=== PATIENT | male | born 2005 | race African-American/Black ===

== ENCOUNTER 2025-01-02 18:57 | Emergency (ER) | payer OTHER, SELFPAY ==
--- NOTE | ~2025-01-02 | CT_ITS ---
CLINICAL HISTORY: seizure, hx of shunt CT head without contrast Comparison: None Findings: Limited study in the absence of comparison imaging, given chronic appearing changes. Left posterior approach ventriculostomy terminates proximally midline. There is asymmetric prominence of the right lateral ventricle. 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 There is leftward midline shift of approximately 6 mm. Asymmetric increased density throughout the right temporal and parietal lobes with more punctate regions high density seen on axial images 40 9-53 within the right temporal lobe. The orbits are unremarkable. There is no acute fracture. IMPRESSION: Limited study given the absence of comparison imaging. 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 6 mm of leftward midline shift. Additional somewhat punctate and linear regions of high density may reflect internal calcifications however if there has been trauma, subarachnoid hemorrhage could also have this appearance. Presumably there is imaging elsewhere which could be compared to this study. This document has been electronically signed by: Mike Becerra MD on 01/02/2025 21:44:46
[2025-01-02 19:05] VITALS: BP 132/66; PULSE 78; RESP 20; TEMP 36.5; O2SAT 98; BMI 43.9
--- NOTE | 2025-01-02 19:11 | ED.GENADULT ---
HPI - General Adult General Chief complaint: Seizure Stated complaint: pt having seizures non ambulatory, headache a&o Time Seen by Provider: 01/02/25 19:11 History of Present Illness ED Provider: Louis WORTHINGTON narrative: The patient is a 19-year-old male who lives at a custodial. He has a seizure disorder. He is normally on valproic acid, clobazam, and zonisamide. Apparently his usual seizures last 2 minutes. Today he had a seizure that lasted 7 minutes and so an ambulance was called and he was brought to the hospital. Here in the emergency room the patient is concerned that he is having shunt malfunction. A staff member from the custodial ultimately showed up. He was able to tell me that the patient is new to the custodial and today is the 1st time they have seen him have a seizure. The staff member told me that according to documents from the patient's previous residence the patient normally has a proximally 2 seizures a month. The protocol is to call an ambulance if he has a seizure that lasts more than 2 minutes. The patient says that he had previously been living in a [facility] housing facility. Related Data Allergies Allergy/AdvReac Type Severity Reaction Status Date / Time lactose Allergy Diarrhea Verified 01/02/25 19:07 Review of Systems Review of Systems: Yes all other systems are reviewed and are negative PMFSH Social History Social History Alcohol intake: never Smoked in Last 30 Days: No Use of substances other than those prescribed or required for medical reasons: No Advance Directives: No Advance Directives Information Provided: Yes Physical Exam ED Vital Signs: Vital Signs - 24 hr 01/02/25 19:05 01/02/25 22:05 01/03/25 00:13 Temperature 97.7 F 98.2 F 98.2 F Pulse Rate 78 67 67 Respiratory Rate 20 18 18 Blood Pressure 132/66 108/66 108/66 Pulse Oximetry 98 98 98 Oxygen Delivery Method Room Air Room Air Room Air BMI result Body Mass Index 43.9 Const Other: The patient is awake and alert. He does not seem in acute distress. He has a syndromic appearance and looks somewhat chronically ill but does not seem acutely ill. HENMT Other: The patient is not seem to have any facial muscle asymmetry. Mucous membranes are moist. Airway is clear. Eyes Other: Pupils are round equal, conjunctivae are clear, extraocular movements intact. Neck Other: No nuchal rigidity. Resp Effort & Inspection: normal respiratory effort Auscultation: clear to auscultation bilaterally Cardio Rate: regular rate Rhythm: regular rhythm Heart sounds: S1 normal heart sound present and S2 normal heart sound present GI Other: The abdomen is soft and nontender Skin Other: Skin is dry and unremarkable Neuro Other: The patient is awake and alert. No obvious cranial nerve deficit. His speech seems clear. He moves his arms normally. I think he has some chronic leg weakness. I believe he is at his neurological baseline. Extrem Other: No peripheral edema Medications Administered Discontinued Medications Generic Name Dose Route Start Last Admin Trade Name Praveena PRN Reason Stop Dose Admin Acetaminophen 975 mg 01/02/25 21:19 01/02/25 21:49 Acetaminophen 325 Mg Tablet PO 01/02/25 21:20 975 mg ONCE ONE Administration Divalproex Sodium 1,000 mg 01/02/25 20:27 01/02/25 21:09 Divalproex Sodium Er 500 Mg Tab.Er.24h PO 01/02/25 20:28 1,000 mg ONCE ONE Administration Ibuprofen 400 mg 01/02/25 21:19 01/02/25 21:50 Ibuprofen 400 Mg Tablet PO 01/02/25 21:20 400 mg ONCE ONE Administration Zonisamide 300 mg 01/02/25 20:27 01/02/25 21:09 Zonisamide 100 Mg Capsule PO 01/02/25 20:28 300 mg ONCE ONE Administration Medical Decision Making Medical Decision Making [facility] Narrative: The patient is a 19-year-old male with a history of an intraventricular shunt and a seizure disorder who was on Depakote, zonisamide, and clobazam. He lives at a custodial. He is new to his custodial. He has only been there for about a week and a half. Prior to that he has been living at a [facility] facility. Today he had a seizure that lasted approximately 7 minutes. The custodial has a protocol to call 911 for seizures that last more than 2 minutes. This is the 1st seizure the patient has had at his new custodial. According to the custodial staff they has been made to understand that he normally has a about 2 seizures per month. When I spoke to the patient he was awake and alert and seemed to have a benign clinical appearance but he told me that he felt as if he was having shunt problem. Therefore I ordered a CT of the brain. This was read as showing multiple abnormalities of uncertain chronicity. I spoke with the radiologist who acknowledged that these changes may all be chronic. I was able to forward the images to [facility] and spoke to the on-call neurosurgical PA who was kind enough to compare today's images with old CT scans at [facility]. The CT scans are apparently quite similar. The patient was given his evening dose of zonisamide and Depakote here. Given that his clinical appearance seems benign his CT scan is likely similar to previous CT scans I think he may return to his custodial. Lab Data 01/02/25 19:53 01/02/25 19:53 Labs: Lab Results 01/02/25 Range/Units 19:53 WBC 5.6 (4.8-10.8) X10*3/uL RBC 4.84 (4.60-5.80) X10*6/uL Hgb 14.7 (14.0-18.0) g/dl Hct 43.3 (42.0-52.0) % MCV 89.5 (80.0-98.0) fL MCH 30.4 (27.0-33.0) pg MCHC 33.9 (31.0-36.0) g/dl RDW 13.2 (11.0-16.0) % Plt Count 137 L (160-400) X10*3/uL MPV 10.3 (9.4-12.4) fL Immature Gran % (Auto) 0.2 (0.0-0.4) % Neut % (Auto) 56.0 (45-73) % Lymph % (Auto) 30.9 (20-40) % [place] % (Auto) 7.7 (2-11) % Eos % (Auto) 4.8 H (0-4) % Baso % (Auto) 0.4 (0-2) % Lymph # (Auto) 1.7 (1.2-4.9) X10*3/uL [place] # (Auto) 0.4 (0.1-1.2) X10*3/uL Eos # (Auto) 0.3 (0.0-0.4) X10*3/uL Baso # (Auto) 0.0 (0.0-0.2) X10*3/uL Abs Immat Gran (auto) 0.01 (0.00-0.03) X10*3/uL Absolute Neuts (auto) 3.1 (2.0-8.3) x10*3/uL Absolute Nucleated RBC 0.000 (0.0-0.012) X10*3/uL Nucleated RBC % (auto) 0.0 (0.0-0.2) /100WBC Sodium 142 (135-145) mmol/L Potassium 3.9 (3.3-5.1) mmol/L Chloride 110 H (96-108) mmol/L Carbon Dioxide 24 (22-29) mmol/L Anion Gap 12 (12-20) BUN 15 (9-16) mg/dL Creatinine 0.81 (0.5-1.4) mg/dL Estim Creat Clear Calc 75.6 Estimated GFR > 60 Random Glucose 93 (60-115) mg/dL Calcium 8.7 (8.4-10.2) mg/dL Magnesium 1.7 (1.6-2.6) mg/dL Total Bilirubin 0.2 (0.0-1.0) mg/dL Direct Bilirubin < 0.2 (0.0-0.5) mg/dL AST 36 (5-37) U/L ALT 60 H (0-40) U/L Alkaline Phosphatase 66 (39-117) U/L C-Reactive Protein 0.36 (< or = 0.50) mg/dL Total Protein 7.4 (6.5-8.0) g/dL Albumin 3.7 (3.5-5.0) g/dL Valproic Acid 96.5 (50.0-100.0) mcg/mL Ethyl Alcohol < 10 mg/dL Influenza Type A (PCR) NEGATIVE (Negative) Influenza Type B (PCR) NEGATIVE (Negative) RSV RNA Qual (PCR) NEGATIVE (Negative) SARS-CoV-2 RNA (RT-PCR) NEGATIVE (Negative) Discharge Plan Discharge Clinical Impression: Breakthrough seizure Patient Disposition: Home, Self-Care Additional Instructions: Please continue his regular medications. Here in the emergency room this evening he received his evening doses of Depakote and zonisamide. Please contact his neurologist tomorrow and inform them of the seizure today. Return to the emergency room if significantly worse. Referrals: Lucia Gregg, [employer] [Nurse Practitioner] - Stand Alone Forms: Work/School Release Interventions: ED Discharge Assessment Last Done: 01/03/25 00:13 Discharge Date/Time: 01/03/25 00:16 Print Language: Belarusian
--- NOTE | 2025-01-02 19:12 | ECG_ITS ---
Test Reason : SEIZURES Blood Pressure : */* mmHG Vent. Rate : 76 BPM Atrial Rate : 76 BPM P-R Int : 106 ms QRS Dur : 74 ms QT Int : 356 ms P-R-T Axes : 22 26 -19 degrees QTcB Int : 400 ms Sinus rhythm with sinus arrhythmia with short WI T wave abnormality, consider inferior ischemia T wave abnormality, consider anterolateral ischemia Abnormal ECG No previous ECGs available Referred By: Justin Myers Electronically Signed By: Winston Marte
[2025-01-02 19:58] LABS: MANUAL DIFF FLAG NO
[2025-01-02 19:59] LABS: PLT CLUMP 1; SCAN SMEAR FLAG 1
[2025-01-02 20:17] LABS: Valproate 96.5 mcg/mL (50.0-100.0)
[2025-01-02 20:22] LABS: Alanine Aminotransferase 60 U/L (0-40); Albumin Level 3.7 g/dL (3.5-5.0); Alkaline Phosphatase 66 U/L (39-117); Anion Gap 12 (12-20); Aspartate Amino Transferase 36 U/L (5-37); Bilirubin Direct < 0.2 mg/dL (0.0-0.5); Bilirubin Total 0.2 mg/dL (0.0-1.0); Blood Urea Nitrogen 15 mg/dL (9-16); C Reactive Protein 0.36 mg/dL (< or = 0.50); Calcium 8.7 mg/dL (8.4-10.2); Carbon Dioxide 24 mmol/L (22-29); Chloride 110 mmol/L (96-108); Creatinine Clr Calc Pharmacy 75.6; Estimated Glomerular Filt Rate > 60; Ethanol < 10 mg/dL; Glucose Random 93 mg/dL (60-115); Magnesium 1.7 mg/dL (1.6-2.6); Potassium 3.9 mmol/L (3.3-5.1); Sodium 142 mmol/L (135-145); Total Protein 7.4 g/dL (6.5-8.0)
[2025-01-02 20:23] LABS: Basophils Percent Auto 0.4 % (0-2); Eosinophils Absolute Auto 0.3 X10*3/uL (0.0-0.4); Eosinophils Percent Auto 4.8 % (0-4); Hematocrit 43.3 % (42.0-52.0); Hemoglobin 14.7 g/dl (14.0-18.0); Imm Gran Abs Auto 0.01 X10*3/uL (0.00-0.03); Imm Gran Pct Auto 0.2 % (0.0-0.4); Lymphocytes Absolute Auto 1.7 X10*3/uL (1.2-4.9); Lymphocytes Percent Auto 30.9 % (20-40); Mean Corpuscular HGB Conc 33.9 g/dl (31.0-36.0); Mean Corpuscular Hemoglobin 30.4 pg (27.0-33.0); Mean Corpuscular Volume 89.5 fL (80.0-98.0); Mean Platelet Volume 10.3 fL (9.4-12.4); Monocytes Absolute Auto 0.4 X10*3/uL (0.1-1.2); Monocytes Percent Auto 7.7 % (2-11); Neutrophils Absolute Auto 3.1 x10*3/uL (2.0-8.3); Platelet Count 137 X10*3/uL (160-400); Red Blood Count 4.84 X10*6/uL (4.60-5.80); Red Cell Distribution Width 13.2 % (11.0-16.0); White Blood Count 5.6 X10*3/uL (4.8-10.8)
[2025-01-02 20:38] LABS: Influenza A PCR NEGATIVE (Negative); Influenza B PCR NEGATIVE (Negative); Resp Syncy Virus RNA Qual PCR NEGATIVE (Negative); SARS COV2 PCR INHOUSE NEGATIVE (Negative)
[2025-01-02] MEDS: Zonisamide 100 MG CAPSULE 300 MG PO (21:09)
[2025-01-02] MEDS: Divalproex Sodium ER 500 MG TAB.ER.24H 1000 MG PO (21:09)
[2025-01-02] MEDS: Acetaminophen 325 MG TABLET 975 MG PO (21:49)
[2025-01-02] MEDS: Ibuprofen 400 MG TABLET PO (21:50)
[2025-01-02 22:05] VITALS: BP 108/66; PULSE 67; RESP 18; TEMP 36.8; O2SAT 98
[2025-01-03 00:13] VITALS: BP 108/66; PULSE 67; RESP 18; TEMP 36.8; O2SAT 98
[2025-01-08 01:08] LABS: Zonisamide Zonegran 18.7 mcg/mL (10.0-40.0)
== END 2025-01-03 00:16 | disposition home or self-care (01) ==
PROVIDERS: Emergency Provider Emergency Medicine; PCP Pediatrics
DX: G40.909 Epilepsy, unspecified, not intractable, without status epilepticus (principal); Z79.899 Other long term (current) drug therapy; Z03.818 Encounter for observation for suspected exposure to other biological agents ruled out
CPT/HCPCS: 0241U; 70450; 80048; 80076; 80164; 80203; 80307; 83735; 85025; 86140; 93005; 99284

== ENCOUNTER → 2025-01-02 19:12 | Outpatient (BNV) | payer OTHER, SELFPAY | PROVIDERS: Emergency Provider Emergency Medicine; PCP Pediatrics; Visit Provider Internal Medicine Cardiovascular Disease | DX: I45.6 Pre-excitation syndrome (principal); I49.9 Cardiac arrhythmia, unspecified | CPT/HCPCS: 93010 ==

== ENCOUNTER → 2025-01-02 19:43 | Outpatient (BNV) | payer OTHER, SELFPAY | PROVIDERS: Emergency Provider Emergency Medicine; Visit Provider Radiology Vascular & Interventional Radiology | DX: R42 Dizziness and giddiness (principal) | CPT/HCPCS: 70450 ==